=== PATIENT | female | born 1955 | race American Indian/Alaskan Native ===

== ENCOUNTER 2022-01-17 06:46 | Observation (INO) | payer BC ==
[~2022-01-17 06:46] MED LIST: ceFAZolin/STERILE WATER 2 GM/20 ML SYRINGE IV NR
[2022-01-17] MEDS ORDERED: LACTATED RINGERS 1,000 ML ONE ×2 (08:28→12:34)
[2022-01-17] MEDS ORDERED: HYDROmorphone 0.5 MG/0.5 ML INJ IV PRN ×2 (08:50)
[2022-01-17] MEDS ORDERED: ONDANSETRON 4 MG/2 ML INJ IV PRN ×2 (08:50→17:13)
[2022-01-17] MEDS ORDERED: fentaNYL 100 MCG/2 ML INJ IV NR (08:50)
--- NOTE | 2022-01-17 08:51 | Anesthesia Day of Surgery ---
Anesthesia Day of Surgery - Day of Surgery Patient Examined: Yes Patient H&P Reviewed: Yes Patient is NPO: Yes
--- NOTE | 2022-01-17 08:52 | Anesthesia Consultation ---
Anesthesia Consult and Med Hx Date of service: 01/17/22 - Airway Anesthetic Teeth Evaluation: Dentures (Upper), Edentulous (Upper) ROM Head & Neck: Adequate Mental/Hyoid Distance: Adequate Mallampati Class: Class II Intubation Access Assessment: Good - Pre-Operative Health Status ASA Pre-Surgery Classification: ASA2 Proposed Anesthetic Plan: General Nerve Block: IS - Pulmonary Hx Smoking: No Hx Asthma: Yes Hx Sleep Apnea: No - Cardiovascular System Hx Hypertension: Yes Hx Heart Attack/AMI: No (Pt reports negative ECHO & ECG 08/31) - Central Nervous System Hx Psychiatric Problems: No - Gastrointestinal Hx Gastroesophageal Reflux Disease: No - Hematic Hx Sickle Cell Disease: No - Other Systems Hx Alcohol Use: Yes (OCCASIONALLY) Hx Substance Use: No Hx Cancer: No
[2022-01-17] MEDS ORDERED: BUPIVACAINE/PF (0.5%) 5 MG/1 ML 30 ML VIAL INFILTRATI ONE (08:53)
[2022-01-17] MEDS ORDERED: dexAMETHasone 4 MG/ML VIAL ONE (08:54)
[2022-01-17] MEDS ORDERED: MIDAZOLAM 2 MG/2 ML INJ IV NR (09:00)
[2022-01-17] MEDS ORDERED: LACTATED RINGERS 1,000 ML IV SCH (09:00)
[2022-01-17] MEDS ORDERED: EPINEPHrine/PF 1 MG/1 ML INJ ONE (10:25)
[2022-01-17] MEDS ORDERED: LIDOCAINE MPF (2%) 20 MG/1 ML VIAL 5 ML ONE (10:29)
[2022-01-17] MEDS ORDERED: dexAMETHasone 20 MG/5 ML VIAL ONE (10:29)
[2022-01-17] MEDS ORDERED: ROCURONIUM 50 MG/5 ML INJ IV ONE (10:29)
[2022-01-17] MEDS ORDERED: ONDANSETRON 4 MG/2 ML INJ ONE (10:29)
[2022-01-17] MEDS ORDERED: HYDROmorphone 1 MG/1 ML INJ ONE (10:30)
[2022-01-17] MEDS ORDERED: propofoL 200 MG/20 ML VIAL IV ONE (10:31)
[2022-01-17] MEDS ORDERED: SODIUM CHLORIDE 0.9% IRRIG SOLN 2000 ML IR ONE (11:45)
[2022-01-17] MEDS ORDERED: EPINEPHrine/PF 1 MG/1 ML INJ IV ONE (11:46)
[2022-01-17] MEDS ORDERED: GLYCOPYRROLATE 0.4 MG/2 ML INJ ONE (12:11)
[2022-01-17] MEDS ORDERED: NEOSTIGMINE 10MG/10 ML INJ MDV ONE (12:11)
[2022-01-17] MEDS ORDERED: PHENYLEPHRINE/NS 1,000 MCG/10 ML SYRINGE (OR USE) IV ONE (12:11)
--- NOTE | 2022-01-17 12:37 | Discharge Summary ---
Short Stay Discharge Plan Weight Bearing Status: Weight Bear as Tolerated Diet: regular Wound: change dressing (In 48 hrs may remove dressing and shower. Place waterproof bandages to shower) Follow up with: DR ANGY [Other] - 7 Days JAVIER WHITEHEAD II, MD [Staff Physician] - 7 Days
[2022-01-17] MEDS ORDERED: ALBUTEROL 2.5 MG/3 ML NEBU IH ONE (13:00)
[2022-01-17] MEDS ORDERED: ALBUTEROL 2.5 MG/3 ML NEBU IH NR (13:15)
[2022-01-17] MEDS ORDERED: IPRATROPIUM/ALBUTEROL SULFATE 3 ML AMPUL.NEB IH ONE (13:47)
[2022-01-17] MEDS ORDERED: SODIUM CHLORIDE FOR INHALATION NEBU 3 ML ONE ×2 (13:47→15:25)
--- NOTE | 2022-01-17 14:11 | Post Anesthesia Evaluation ---
- Post Anesthesia Evaluation Patient Participated: Yes Airway Patent: Yes Stable Respiratory Function: Yes Nausea/Vomiting: No Temp > 96.8F: Yes Pain Manageable: Yes Adequeate Hydration: Yes Anesthesia Complications: No Block Receding Appropriately: Yes Patient on Ventilator: No
[2022-01-17] MEDS ORDERED: ALBUTEROL 2.5 MG/3 ML NEBU IH PRN (14:17)
--- NOTE | 2022-01-17 14:58 | XRay Report ---
CHEST 1 VIEW 01/17/2022 1:49 PM INDICATION / CLINICAL INFORMATION: SOB. COMPARISON: None available. FINDINGS: SUPPORT DEVICES: None. HEART / MEDIASTINUM: No significant abnormality. LUNGS / PLEURA: The left hemidiaphragm is elevated with left basilar airspace opacities. Interstitial opacities are present elsewhere throughout the lungs. There is a probable small left pleural effusio n. No pneumothorax. ADDITIONAL FINDINGS: There is mild gaseous distention of the stomach. IMPRESSION: 1. Nonspecific bilateral interstitial prominence, possibly representing edema, with left basilar airs pace opacities representing atelectasis or other airspace disease. 2. Probable small left pleural effusion. Signer Name: Lan Nova MD Signed: 01/17/2022 2:53 PM Workstation Name: [email or web address]
[2022-01-17] MEDS ORDERED: ACETYLCYSTEINE 10% 100 MG/1 ML *FOR INHALATION USE INHALATION ONE (15:00)
[2022-01-17] MEDS ORDERED: ACETYLCYSTEINE 20% 200 MG/1 ML *FOR INHALATION USE INHALATION ONE (15:15)
[2022-01-17] MEDS ORDERED: ACETAMINOPHEN 325 MG TAB PO PRN (17:13)
[2022-01-17] MEDS ORDERED: METOCLOPRAMIDE 10 MG/2 ML INJ IV PRN (17:18)
[2022-01-17] MEDS ORDERED: MORPHINE 2 MG/1 ML INJ IV PRN (17:18)
[2022-01-17] MEDS ORDERED: SODIUM CHLORIDE 0.9% 1000 ML 1,000 ML IV SCH (17:30)
[2022-01-17] MEDS ORDERED: IPRATROPIUM/ALBUTEROL SULFATE 3 ML AMPUL.NEB IH PRN (17:32)
[2022-01-17] MEDS ORDERED: NON-FORMULARY EACH (Losartan [Cozaar] 100 MG Tablet) PO SCH (17:45)
[2022-01-17] MEDS ORDERED: IPRATROPIUM/ALBUTEROL SULFATE 3 ML AMPUL.NEB IH SCH (20:00)
[2022-01-17] MEDS: methylPREDNISolone Sod Succinate 40 MG/1 ML INJ IV SCH (21:52)
[2022-01-17] MEDS: HEPARIN 5,000 UNIT/1 ML VIAL SUB-Q SCH (21:56)
[2022-01-17] MEDS: FAMOTIDINE 20 MG TAB PO SCH (22:23)
[2022-01-17] MEDS: oxyCODONE /ACETAMINOPHEN 5-325MG TAB PO PRN (23:02)
[2022-01-17 23:17] VITALS: BP 157/89
--- NOTE | 2022-01-17 23:29 | History and Physical Report ---
History of Present Illness Date of examination: 01/17/22 Date of admission: 01/17/22 17:13 Chief complaint: Left shoulder surgery and persistent hypoxia after surgery History of present illness: Patient had left shoulder rotator cuff repair and subacromial decompression and dbridement. Postop patient continued to be hypoxic and there were no precipitating factors except for history of asthma. Because of the persistent hypoxia in the PACU patient being admitted for observation for 23 hours. Past History Past Medical History: arthritis, hypertension Past Surgical History: Other (Left shoulder rotator cuff surgery and subacromial decompression and debridement) Social history: lives with family, full code Family history: hypertension Medications and Allergies Allergies Allergy/AdvReac Type Severity Reaction Status Date / Time No Known Allergies Allergy Verified 01/14/22 15:57 Home Medications Medication Instructions Recorded Confirmed Last Taken Type Celecoxib [celeBREX] 400 mg PO BID 01/14/22 01/14/22 Unknown History Losartan [Cozaar] 100 mg PO QDAY 01/14/22 01/14/22 Unknown History Active Meds: Active Medications Acetaminophen (Acetaminophen 325 Mg Tab) 650 mg PO Q4H PRN PRN Reason: Pain MILD(1-3)/Fever >100.5/MCKENZIE Albuterol (Albuterol 2.5 Mg/3 Ml Nebu) 2.5 mg IH Q4HRT PRN PRN Reason: Shortness Of Breath Last Admin: 01/17/22 16:00 Dose: 2.5 mg Albuterol/Ipratropium (Ipratropium/Albuterol Sulfate 3 Ml Ampul.Neb) 1 ampul IH QIDRT LG Famotidine (Famotidine 20 Mg Tab) 20 mg PO BID LG Last Admin: 01/17/22 22:23 Dose: 20 mg Heparin Sodium (Porcine) (Heparin 5,000 Unit/1 Ml Vial) 5,000 unit SUB-Q Q12HR LG Last Admin: 01/17/22 21:56 Dose: 5,000 unit Sodium Chloride (Nacl 0.9% 1000 Ml) 1,000 mls @ 100 mls/hr IV DIRECT LG Last Admin: 01/17/22 21:52 Dose: 100 mls/hr Levofloxacin/Dextrose (Levaquin 750mg/150ml) 750 mg in 150 mls @ 100 mls/hr IV Q24H LG; Protocol Last Admin: 01/17/22 21:55 Dose: 100 mls/hr Losartan Potassium (Losartan 50 Mg Tab) 100 mg PO QDAY [facility] Methylprednisolone Sodium Succinate (Methylprednisolone Sod Succinate 40 Mg/1 Ml Inj) 40 mg IV Q8H [facility] Last Admin: 01/17/22 21:52 Dose: 40 mg Metoclopramide HCl (Metoclopramide 10 Mg/2 Ml Inj) 10 mg IV Q6H PRN PRN Reason: Nausea And Vomiting Midazolam HCl (Midazolam 2 Mg/2 Ml Inj) 2 mg IV PREOP NR Stop: 01/17/22 23:59 Morphine Sulfate (Morphine 2 Mg/1 Ml Inj) 2 mg IV Q4H PRN PRN Reason: Pain, Moderate (4-6) Ondansetron HCl (Ondansetron 4 Mg/2 Ml Inj) 4 mg IV Q8H PRN PRN Reason: Nausea And Vomiting Oxycodone/Acetaminophen (Oxycodone /Acetaminophen 5-325mg Tab) 1 tab PO Q6H PRN PRN Reason: Pain, Moderate (4-6) Last Admin: 01/17/22 23:02 Dose: 1 tab Sodium Chloride (Sodium Chloride 0.9% 10 Ml Flush Syringe) 10 ml IV BID [facility] Last Admin: 01/17/22 22:23 Dose: 10 ml Sodium Chloride (Sodium Chloride 0.9% 10 Ml Flush Syringe) 10 ml IV PRN PRN PRN Reason: LINE FLUSH Review of Systems All systems: negative Exam - Constitutional Vitals: Temp Pulse Resp BP Pulse Ox 98.2 F 93 H 20 157/89 97 01/17/22 22:49 01/17/22 22:49 01/17/22 22:49 01/17/22 22:49 01/17/22 22:49 General appearance: Present: no acute distress, well-nourished - EENT Eyes: Present: PERRL ENT: hearing intact, clear oral mucosa - Neck Neck: Present: supple, normal ROM - Respiratory Respiratory effort: normal Respiratory: bilateral: CTA - Cardiovascular Heart rate: 78 Rhythm: regular Heart Sounds: Present: S1 & S2. Absent: rub, click - Extremities Extremities: pulses symmetrical, No edema Peripheral Pulses: within normal limits - Abdominal General gastrointestinal: Present: soft, non-tender, non-distended, normal bowel sounds Female genitourinary: Present: normal - Rectal Rectal Exam: deferred - Integumentary Integumentary: Present: clear, warm, dry - Musculoskeletal Musculoskeletal: gait normal, strength equal bilaterally - Psychiatric Psychiatric: appropriate mood/affect, intact judgment & insight - Neurologic Neurologic: CNII-XII intact, moves all extremities Results Henriquez/IV: Voiding Method Toilet Assessment and Plan Advance Directives: Yes (Full code) VTE prophylaxis?: Chemical Plan of care discussed with patient/family: Yes - Patient Problems (1) S/P left rotator cuff repair Current Visit: Yes Status: Acute Plan to address problem: S/p left rotator cuff tear and subacromial decompression which was D compressed Physical therapy and postsurgery instructions given by Dr. Stanton (2) Acute respiratory failure with hypoxia Current Visit: Yes Status: Acute Plan to address problem: No precipitating cause Patient morbidly obese Possible hypoventilation Will observe for 23 hours Treat as asthma exacerbation (3) Asthma exacerbation Current Visit: Yes Status: Acute Qualifiers: Asthma severity: moderate Plan to address problem: DuoNebs every 3 hours and as needed and [id number] Low-dose IV Solu-Medrol IV Levaquin (4) Hypertension Current Visit: Yes Status: Chronic Qualifiers: Hypertension type: primary hypertension Qualified Code(s): I10 - Essential (primary) hypertension Plan to address problem: Continue antihypertensives (5) DVT prophylaxis Current Visit: Yes Status: Acute Plan to address problem: On heparin and GI prophylaxis (6) Advance care planning Current Visit: Yes Status: Acute Plan to address problem: Disease education conducted, care plan discussed, diagnosis discussed, prognosis discussed. Patient is full code. Patient acknowledges understanding and agreement with care plan. +30 minutes.
[2022-01-18 01:12] LABS: Hematocrit 31.2 % (30.3-42.9); Hemoglobin 10.2 gm/dl (10.1-14.3); Mean Corpuscular HGB Conc 33 % (30-34); Mean Corpuscular Volume 81 fl (79-97); Platelet Count 197 K/mm3 (140-440); Red Blood Count 3.87 M/mm3 (3.65-5.03); Red Cell Distribution Width 15.1 % (13.2-15.2)
[2022-01-18 01:31] LABS: Blood Urea Nitrogen 15 mg/dL (7-17); Calcium 9.1 mg/dL (8.4-10.2); Hemolysis Index 12
[2022-01-18 01:32] LABS: BUN/Creatinine Ratio 21
--- NOTE | 2022-01-18 02:26 | Operative Report ---
DATE OF SURGERY: 01/17/2022 PREOPERATIVE DIAGNOSIS: Left shoulder rotator cuff tear. POSTOPERATIVE DIAGNOSIS: Left shoulder rotator cuff tear with partial thickness tear. PROCEDURE PERFORMED: Left shoulder arthroscopic debridement extensive and subacromial decompression. SURGEON: Ivan Adrian II, MD. CARGO WORKER: None. ANESTHESIA: General with interscalene block. COMPLICATIONS: None. DRAINS: None. SPECIMENS: None. TOURNIQUET TIME: Not applicable. PREOPERATIVE MEDICATIONS: Ancef 2 grams administered 30 minutes prior to skin incision. Examination under anesthesia reveals full range of motion, no instability. OPERATIVE FINDINGS: Include a low-grade partial thickness tear of the rotator cuff, estimated to be about 30% thickness. INDICATIONS: The patient is a 66-year-old female who has been having refractory pain in her left shoulder. Evaluation workup was suggestive of a partial thickness tear of the rotator cuff and tendinosis. It was recommended the patient undergo surgical management. Risks, benefits and limitations of surgery were discussed with the patient including bleeding, infection, injury to nerves, blood vessel, and need for operation. The patient appeared to understand the risks and consented to undergo surgery. TECHNIQUE: In the preoperative holding area, site was marked with surgical marking pen. Extremity was prepped and draped in sterile fashion in a beach chair position. Standard posterior portal was placed and diagnostic arthroscopy was performed. In the intra-articular space, there was noted to be some degenerative changes, grade II chondromalacia. Biceps tendon was intact. The labrum appeared normal. The subscapularis was intact. Evaluation of the rotator cuff revealed a partial thickness tear that appeared to have a low-grade partial thickness tear estimated about 20% thickness of the tendon. A decision was made to perform a debridement using an oscillating shaver and Arthrocare wand. The rotator cuff was debrided to a stable rim. A marking suture was placed intraarticularly and then the scope was placed into the subacromial space. There was noted to be significant bursal inflammation in the subacromial space, both anteriorly and posteriorly. This was debrided using an oscillating shaver and Arthrocare wand. The bursal surface of the tear was visualized. There was noted to be no signs or evidence of any tearing of the rotator cuff. A subacromial decompression was performed removing about 5 mm undersurface of the acromion. Arthroscope was removed. Incisions were closed with 3-0 nylon. Sterile dressing was applied. The patient was awakened and taken to recovery room in stable condition. POSTOPERATIVE PLAN: The patient will be in a sling for 2 weeks, do physical therapy, work on range of motion exercises. We will see the patient back for a followup visit 2 weeks postop. TID: [id number] RECEIPT: [id number] REX/ZORAIDA
[2022-01-18 04:08] LABS: Total Cells Counted 100
[2022-01-18 04:09] LABS: Anisocytosis Few; Band Neutrophils # (Manual) 0.1 K/mm3; Basophils % (Manual) 0 % (0.0-1.8); Eosinophils % (Manual) 0 % (0.0-4.3); Platelet Estimate Consistent w Auto
[2022-01-18] MEDS: methylPREDNISolone Sod Succinate 40 MG/1 ML INJ IV SCH ×2 (04:52→11:27)
[2022-01-18 06:44] LABS: Hematocrit 31.8 % (30.3-42.9); Hemoglobin 10.3 gm/dl (10.1-14.3); Mean Corpuscular HGB Conc 33 % (30-34); Mean Corpuscular Volume 81 fl (79-97); Platelet Count 213 K/mm3 (140-440); Red Blood Count 3.95 M/mm3 (3.65-5.03); Red Cell Distribution Width 15.2 % (13.2-15.2)
[2022-01-18 07:07] LABS: Alanine Aminotransferase 14 units/L (7-56); Albumin 4.1 g/dL (3.9-5); BUN/Creatinine Ratio 18; Blood Urea Nitrogen 16 mg/dL (7-17); Calcium 9.5 mg/dL (8.4-10.2); Hemolysis Index 6
--- NOTE | 2022-01-18 08:18 | Progress Note ---
Subjective Date of service: 01/18/22 Principal diagnosis: Left Shoulder Impingement s/p Arthroscopy Interval history: SUBJECTIVE: Patient reports she feels good, minimal pain and still with some numbness and tingling in her hand. Does not report feeling short of breath. She is on Oxygen. OBJECTIVE: Dressing clean, dry and intact A/P: S/P Left shoulder arthroscopy and debridement with subsequent hypoxia related to asthma exacerbation. Patient may go when cleared by hospitalist team. Patient is set to follow up with me in 2 weeks. Ivan Adrian [phone] Objective Vital signs: Vital Signs - 12hr 01/17/22 01/17/22 01/17/22 20:30 21:00 22:49 Temperature 97.4 F L 98.2 F Pulse Rate 86 93 H Respiratory 18 18 20 Rate Blood Pressure 156/82 157/89 O2 Sat by Pulse 98 98 97 Oximetry - Labs CBC & BMP: 01/18/22 06:16 01/18/22 06:16 Labs: Abnormal lab results 01/18/22 01/18/22 01/18/22 Range/Units 00:10 00:10 06:16 WBC 11.4 H (4.5-11.0) K/mm3 MCH 26 L 26 L (28-32) pg Seg Neuts % (Manual) 94.0 H (40.0-70.0) % Lymphocytes % (Manual) 4.0 L (13.4-35.0) % Seg Neutrophils # Man 8.5 H (1.8-7.7) K/mm3 Lymphocytes # (Manual) 0.4 L (1.2-5.4) K/mm3 Sodium 135 L (137-145) mmol/L Glucose 199 H (65-100) mg/dL 01/18/22 Range/Units 06:16 WBC (4.5-11.0) K/mm3 MCH (28-32) pg Seg Neuts % (Manual) (40.0-70.0) % Lymphocytes % (Manual) (13.4-35.0) % Seg Neutrophils # Man (1.8-7.7) K/mm3 Lymphocytes # (Manual) (1.2-5.4) K/mm3 Sodium (137-145) mmol/L Glucose 123 H (65-100) mg/dL
[2022-01-18] MEDS: HEPARIN 5,000 UNIT/1 ML VIAL SUB-Q SCH (09:19)
[2022-01-18] MEDS: FAMOTIDINE 20 MG TAB PO SCH (09:19)
[2022-01-18] MEDS ORDERED: LOSARTAN 50 MG TAB PO SCH (10:00)
[2022-01-18 11:00] LABS: Basophils % (Manual) 0 % (0.0-1.8); Eosinophils % (Manual) 0 % (0.0-4.3); Total Cells Counted 100
[2022-01-18 11:03] LABS: Anisocytosis 1+; Large Platelets Rare; Ovalocytes Rare; Poikilocytosis Few; Spherocytes Rare; Stomatocytes Rare
[2022-01-18 11:04] LABS: Platelet Estimate Consistent w Auto
[2022-01-18] MEDS: oxyCODONE /ACETAMINOPHEN 5-325MG TAB PO PRN (12:43)
--- NOTE | 2022-01-18 13:42 | Cat Scan Report ---
CTA CHEST WITH CONTRAST INDICATION / CLINICAL INFORMATION: Dyspnea,Hypoxia. TECHNIQUE: Axial CT images were obtained through the chest after injection of 80 cc Omnipaque 350 IV contrast. 3 plane MIP and/or 3D reconstructions were produced. All CT scans at this location are perf ormed using CT dose reduction for ALARA by means of automated exposure control. COMPARISON: One view of the chest performed on 01/17/2022. FINDINGS: PULMONARY EMBOLUS: None. THORACIC AORTA: Mild atherosclerotic calcification without acute abnormality. Mild calcification is a lso noted along the aortic valve. HEART: Normal heart size. No significant pericardial effusion. There is mild calcification along the mitral valve. CORONARY ARTERY CALCIFICATION: Absent -- None. MEDIASTINUM / KESHAV: No significant abnormality. PLEURA: No pleural effusion. No pneumothorax. LUNGS: No acute air space or interstitial disease. There is an uncomplicated small right fat-containi ng Bochdalek hernia. ADDITIONAL FINDINGS: None. UPPER ABDOMEN: No acute findings. SKELETAL STRUCTURES: No acute findings. There is mild spondylosis. IMPRESSION: 1. No CT evidence for pulmonary embolism. 2. No acute findings. 3. Additional findings as above. Signer Name: Lan Nova MD Signed: 01/18/2022 1:38 PM Workstation Name: [email or web address]
[2022-01-18] MEDS ORDERED: IPRATROPIUM/ALBUTEROL SULFATE 3 ML AMPUL.NEB IH SCH (14:00)
--- NOTE | 2022-01-18 14:45 | Discharge Summary ---
Providers - Providers Date of Admission: 01/17/22 17:13 Date of discharge: 01/18/22 Attending physician: GERALDINE DUMONT Primary care physician: Chief complaint: Left shoulder surgery and persistent hypoxia after surgery History of present illness: Patient had left shoulder rotator cuff repair and subacromial decompression and dbridement. Postop patient continued to be hypoxic and there were no precipitating factors except for history of asthma. Because of the persistent hypoxia in the PACU patient being admitted for observation for 23 hours. Patient saturations are 99% on room air On exertion dropped down to 88% CT angiogram was done to rule out pulmonary embolism CT angiogram was negative Patient to follow-up with Dr. Whitehead - Patient Problems (1) S/P left rotator cuff repair Current Visit: Yes Status: Acute Plan to address problem: S/p left rotator cuff tear and subacromial decompression which was D compressed Physical therapy and postsurgery instructions given by Dr. Stanton (2) Acute respiratory failure with hypoxia Current Visit: Yes Status: Acute Plan to address problem: ++ (3) Asthma exacerbation Current Visit: Yes Status: Acute Qualifiers: Asthma severity: moderate Plan to address problem: DuoNebs every 3 hours and as needed and [id number] Low-dose IV Solu-Medrol IV Levaquin (4) Hypertension Current Visit: Yes Status: Chronic Qualifiers: Hypertension type: primary hypertension Qualified Code(s): I10 - Essential (primary) hypertension Plan to address problem: Continue antihypertensives (5) DVT prophylaxis Current Visit: Yes Status: Acute Plan to address problem: On heparin and GI prophylaxis (6) Advance care planning Current Visit: Yes Status: Acute Plan to address problem: Disease education conducted, care plan discussed, diagnosis discussed, prognosis discussed. Patient is full code. Patient acknowledges understanding and agreement with care plan. +30 minutes. Hospitalization Hospital course: Acute respiratory failure with hypoxia Asthma exacerbation Hypertension S/p left rotator cuff tear repair Disposition: 01 HOME / SELF CARE / HOMELESS Final Discharge Diagnosis (Prints w/discharge instructions): Acute respiratory failure with hypoxia. Hypertension. Asthma exacerbation. S/p rotator cuff repair on the left shoulder Time spent for discharge: 32 minutes - Discharge Diagnoses (1) S/P left rotator cuff repair Status: Acute (2) Acute respiratory failure with hypoxia Status: Acute (3) Asthma exacerbation Status: Acute Qualifiers: Asthma severity: moderate (4) Hypertension Status: Chronic Qualifiers: Hypertension type: primary hypertension Qualified Code(s): I10 - Essential (primary) hypertension (5) DVT prophylaxis Status: Acute (6) Advance care planning Status: Acute Core Measure Documentation - Palliative Care Palliative Care/ Comfort Measures: Not Applicable - Core Measures Any of the following diagnoses?: none Exam - Constitutional Vitals: Temp Pulse Resp BP Pulse Ox 98.2 F 84 19 157/89 98 01/17/22 22:49 01/18/22 08:00 01/18/22 08:00 01/17/22 22:49 01/18/22 10:39 General appearance: Present: no acute distress, well-nourished - EENT Eyes: Present: PERRL ENT: hearing intact, clear oral mucosa - Neck Neck: Present: supple, normal ROM - Respiratory Respiratory effort: normal Respiratory: bilateral: CTA - Cardiovascular Heart rate: 76 Rhythm: regular Heart Sounds: Present: S1 & S2. Absent: rub, click - Extremities Extremities: no ischemia, pulses intact, pulses symmetrical, No edema Peripheral Pulses: within normal limits - Abdominal General gastrointestinal: Present: soft, non-tender, non-distended, normal bowel sounds Female genitourinary: Present: normal - Integumentary Integumentary: Present: clear, warm, dry - Musculoskeletal Musculoskeletal: gait normal, strength equal bilaterally - Psychiatric Psychiatric: appropriate mood/affect, intact judgment & insight - Neurologic Neurologic: CNII-XII intact, moves all extremities Plan Activity: no restrictions Diet: low salt Follow up with: DR ANGY [Other] - 7 Days JAVIER WHITEHEAD II, MD [Staff Physician] - 7 Days Forms: Outpatient [facility] ID Inst.
== END 2022-01-18 16:24 | disposition home or self-care (01) ==
LOC: OR 06:46 → 3A 17:13 → INTOOBSV 17:13 → 3A 19:35
PROVIDERS: ADMIT Internal Medicine; ATTEND Internal Medicine
DX: J96.01 Acute respiratory failure with hypoxia (principal); M75.102 Unspecified rotator cuff tear or rupture of left shoulder, not specified as traumatic; J45.901 Unspecified asthma with (acute) exacerbation; I10 Essential (primary) hypertension; M19.90 Unspecified osteoarthritis, unspecified site; Z79.899 Other long term (current) drug therapy; Z98.890 Other specified postprocedural states
CPT/HCPCS: 29823; 29826; 36415; 71045; 71275; 80053; 85025; 94640; 94760; 96365; 96372; 96375; 96376; G0378; J0171; J0690; J1100; J1170; J1644; J1815; J1956; J2250; J2370; J2405; J2704; J2710; J2920; J3010; J3490; J7030; J7120; Q9967; 80048; 85007